=== PATIENT | female | born 1970 | race Two or more races ===

== ENCOUNTER 2021-10-19 09:21 | Day surgery (SDC) | payer OTHER ==
[2021-10-14 13:45] VITALS: BP 135/69
[~2021-10-19] VITALS: Ht 160 cm; Wt 77.2 kg
[~2021-10-19 09:21] MED LIST: ALPR0.5T PO; BUPIVACAINE-EPI 0.5% 30 ML VIAL KIT. ONE; BUTA1CAP57 PO; CRESTOR40 MG PO; HYDROmorphone 2 MG/ML INJ. IVP PRN; INSULIN LISPRO 100 UNIT/ML 3ML VIAL for OP,RR ONLY. SQ PRN; IOHEXOL 300 MG/ML 50 ML VIAL. ONE; IV RINGERS,LACTATED 1000ML 1,000 ML IV SCH; LISI1TAB37 PO; METF10007 PO; OMEP40CA7 PO; PROCHLORPERAZINE 10 MG/2 ML VIAL. IVP PRN; TOPI50TA8 PO; ceFAZolin SODIUM IV Push 1 GM VIAL. IVP PRN; fentaNYL PF VIAL 100 MCG/2 ML VIAL IVP PRN
[2021-10-19 09:48] VITALS: BP 171/85
[2021-10-19] MEDS ORDERED: DEXAMETHASONE SOD PHOS 4 MG/ML VIAL ONE (09:55)
[2021-10-19] MEDS ORDERED: SEVOFLURANE 61 TO 120 MINUTES. IH ONE (09:55)
[2021-10-19] MEDS ORDERED: ONDANSETRON PF 4 MG/2 ML VIAL. ONE (09:55)
[2021-10-19] MEDS ORDERED: PROPOFOL 10 MG/ML (20ML) VIAL. IV ONE (09:55)
[2021-10-19] MEDS ORDERED: LIDOCAINE 2% PF 5 ML VIAL. ONE (09:55)
[2021-10-19] MEDS ORDERED: MIDAZOLAM HCL/PF 2 MG/2 ML VIAL. ONE (09:56)
[2021-10-19] MEDS ORDERED: ROCURONIUM 50 MG/5 ML VIAL. ONE ×2 (09:56→12:01)
[2021-10-19] MEDS ORDERED: fentaNYL PF VIAL 100 MCG/2 ML VIAL ONE ×2 (09:56→12:46)
[2021-10-19 10:20] LABS: CALCIUM 8.8 mg/dL (8.5-10.1); CREATININE 0.6 mg/dL (0.6-1.0); GFR 106.3; POTASSIUM 3.6 mmol/L (3.5-5.1)
[2021-10-19 10:26] LABS: ALBUMIN 3.5 g/dL (3.4-5.0); ALBUMIN/GLOBULIN RATIO 0.7 (1.0-1.7); TOTAL BILIRUBIN 0.2 mg/dL (0.2-1.0); TOTAL PROTEIN 8.8 g/dL (6.4-8.2)
--- NOTE | 2021-10-19 10:44 | PDOC ---
SURGICAL PROGRESS NOTE DATE: 10/19/21 TIME: 10:43 No change in dictated H&P. Vital Signs Vital Signs Date Time Temp Pulse Resp B/P (MAP) Pulse Ox O2 Delivery O2 Flow Rate FiO2 10/19/21 09:48 97.0 76 18 98 97.0 10/19/21 09:37 171/85 Room Air Labs Laboratory Tests Test 10/19/21 09:42 10/19/21 09:50 Bedside Urine HCG, Qualitative Hcg negative (Negative) Sodium Level 137 mmol/L (136-145) Potassium Level 3.6 mmol/L (3.5-5.1) Chloride Level 97 mmol/L (98-107) Carbon Dioxide Level 28 mmol/L (21-32) Anion Gap 12 (6-14) Blood Urea Nitrogen 12 mg/dL (7-20) Creatinine 0.6 mg/dL (0.6-1.0) Estimated GFR (Cockcroft-Gault) 106.3 BUN/Creatinine Ratio 20 (6-20) Glucose Level 116 mg/dL (70-99) Calcium Level 8.8 mg/dL (8.5-10.1) Total Bilirubin 0.2 mg/dL (0.2-1.0) Aspartate Amino Transf (AST/SGOT) 28 U/L (15-37) Alanine Aminotransferase (ALT/SGPT) 42 U/L (14-59) Alkaline Phosphatase 225 U/L (46-116) Total Protein 8.8 g/dL (6.4-8.2) Albumin 3.5 g/dL (3.4-5.0) Albumin/Globulin Ratio 0.7 (1.0-1.7) Laboratory Tests Test 10/19/21 09:42 10/19/21 09:50 Bedside Urine HCG, Qualitative Hcg negative (Negative) Sodium Level 137 mmol/L (136-145) Potassium Level 3.6 mmol/L (3.5-5.1) Chloride Level 97 mmol/L (98-107) Carbon Dioxide Level 28 mmol/L (21-32) Anion Gap 12 (6-14) Blood Urea Nitrogen 12 mg/dL (7-20) Creatinine 0.6 mg/dL (0.6-1.0) Estimated GFR (Cockcroft-Gault) 106.3 BUN/Creatinine Ratio 20 (6-20) Glucose Level 116 mg/dL (70-99) Calcium Level 8.8 mg/dL (8.5-10.1) Total Bilirubin 0.2 mg/dL (0.2-1.0) Aspartate Amino Transf (AST/SGOT) 28 U/L (15-37) Alanine Aminotransferase (ALT/SGPT) 42 U/L (14-59) Alkaline Phosphatase 225 U/L (46-116) Total Protein 8.8 g/dL (6.4-8.2) Albumin 3.5 g/dL (3.4-5.0) Albumin/Globulin Ratio 0.7 (1.0-1.7) Justicifation of Admission Dx: Justifications for Admission: Justification of Admission Dx: Yes TRUPTI RAMOS MD Oct 19, 2021 10:44
--- NOTE | 2021-10-19 10:46 | PDOC ---
SURGICAL PROGRESS NOTE DATE: 10/19/21 TIME: 10:44 Op Note: Surgeon.........................................Hank Pre op diag.....................................chronic cholecystitis and cholelithiasis Post op diag....................................same Anesthesia......................................general Procedure.......................................lap rajesh with grams Blood loss.......................................15ccd Fluids.............................................see anesthesia sheet Drains.............................................none Condition.......................................satisfactory Vital Signs Vital Signs Date Time Temp Pulse Resp B/P (MAP) Pulse Ox O2 Delivery O2 Flow Rate FiO2 10/19/21 09:48 97.0 76 18 98 97.0 10/19/21 09:37 171/85 Room Air Labs Laboratory Tests Test 10/19/21 09:42 10/19/21 09:50 Bedside Urine HCG, Qualitative Hcg negative (Negative) Sodium Level 137 mmol/L (136-145) Potassium Level 3.6 mmol/L (3.5-5.1) Chloride Level 97 mmol/L (98-107) Carbon Dioxide Level 28 mmol/L (21-32) Anion Gap 12 (6-14) Blood Urea Nitrogen 12 mg/dL (7-20) Creatinine 0.6 mg/dL (0.6-1.0) Estimated GFR (Cockcroft-Gault) 106.3 BUN/Creatinine Ratio 20 (6-20) Glucose Level 116 mg/dL (70-99) Calcium Level 8.8 mg/dL (8.5-10.1) Total Bilirubin 0.2 mg/dL (0.2-1.0) Aspartate Amino Transf (AST/SGOT) 28 U/L (15-37) Alanine Aminotransferase (ALT/SGPT) 42 U/L (14-59) Alkaline Phosphatase 225 U/L (46-116) Total Protein 8.8 g/dL (6.4-8.2) Albumin 3.5 g/dL (3.4-5.0) Albumin/Globulin Ratio 0.7 (1.0-1.7) Laboratory Tests Test 10/19/21 09:42 10/19/21 09:50 Bedside Urine HCG, Qualitative Hcg negative (Negative) Sodium Level 137 mmol/L (136-145) Potassium Level 3.6 mmol/L (3.5-5.1) Chloride Level 97 mmol/L (98-107) Carbon Dioxide Level 28 mmol/L (21-32) Anion Gap 12 (6-14) Blood Urea Nitrogen 12 mg/dL (7-20) Creatinine 0.6 mg/dL (0.6-1.0) Estimated GFR (Cockcroft-Gault) 106.3 BUN/Creatinine Ratio 20 (6-20) Glucose Level 116 mg/dL (70-99) Calcium Level 8.8 mg/dL (8.5-10.1) Total Bilirubin 0.2 mg/dL (0.2-1.0) Aspartate Amino Transf (AST/SGOT) 28 U/L (15-37) Alanine Aminotransferase (ALT/SGPT) 42 U/L (14-59) Alkaline Phosphatase 225 U/L (46-116) Total Protein 8.8 g/dL (6.4-8.2) Albumin 3.5 g/dL (3.4-5.0) Albumin/Globulin Ratio 0.7 (1.0-1.7) Justicifation of Admission Dx: Justifications for Admission: Justification of Admission Dx: Yes TRUPTI RAMOS MD Oct 19, 2021 10:46
--- NOTE | 2021-10-19 11:09 | PREOP HP ---
DATE OF SERVICE: 10/19/2021 HISTORY OF PRESENT ILLNESS: The patient is referred by Dr. Parra for cholelithiasis. The history is that she has had for a number of years postprandial fatty food intolerance with gas, bloating, epigastric and right upper quadrant pain. She has never had abdominal surgery and eventually had a sonogram of the gallbladder done this month which showed gallstones without any evidence of obstruction or cholecystitis. This she states has been going on for a long time. She also understands that the gallbladder would not affect gastritis, reflux or any ulcer that she may also have. PAST MEDICAL HISTORY: Shows normal childhood diseases. MEDICATIONS: She takes medication for diabetes and hypertension and also for elevated cholesterol, no other medications. ALLERGIES: She has no allergies. PAST SURGICAL HISTORY: Does not have abdominal surgery. Did have a cyst removed from the back years ago. Not mentioned before, but she does have this fatty food intolerance and also it radiates to the back, mostly on the right side. FAMILY HISTORY: Noncontributory. SOCIAL HISTORY: Shows she drinks only socially, not enough to get inebriated. Does not smoke and does not use illicit drugs. REVIEW OF SYSTEMS: Other than the epigastric pain and right upper quadrant pain with gas and bloating, she does not have GI symptoms, and has no other symptoms or problems at this point. PHYSICAL EXAMINATION: GENERAL: Shows an alert female in no acute distress. HEAD, EYES, EARS, NOSE AND THROAT: Grossly normal. CHEST: Clear bilaterally to auscultation. BREASTS: Not examined. HEART: Had a rate of 70 beats per minute, was regular and she did have about 1-2/6 systolic murmur at the aortic area, not heard at the mitral area or other areas. No history of heart disease to her knowledge. ABDOMEN: Soft. There was no organomegaly, no scars of previous surgery. There was no rebound, guarding or other abnormalities. As stated before there were no masses. She has not had any hysterectomy or any other surgery on the abdomen. EXTREMITIES: Grossly normal. RECTAL: Not done. PELVIC: Not done. IMPRESSION: 1. Hypertension. 2. Diabetes. 3. Hypercholesterolemia. 4. Cholelithiasis. PLAN: We will plan to remove the gallbladder at a time that is satisfactory with her. She understands the ramifications of the risks and wishes it to be done. She understands we will attempt to do it laparoscopically, but there is always a chance that she may have to have open cholecystectomy. DECLAN/CHEY/SILVA DR: DECLAN/cooper TID: [id number]
[2021-10-19] MEDS ORDERED: PHENYLEPHRINE in 0.9% NACL PF 1 MG/10 ML SYRINGE. IV ONE ×2 (11:12→11:51)
--- NOTE | 2021-10-19 12:09 | RAD ---
EXAM: Intraoperative cholangiogram. HISTORY: Cholecystectomy. Pain. COMPARISON: None. FINDINGS: 3 fluoroscopic images were obtained during an intraoperative cholangiogram. The total fluor oscopy time was 0.11 minutes. The images demonstrate contrast opacification of the biliary tree and p roximal duodenum. No retained stone is seen. IMPRESSION: Intraoperative cholangiogram without evidence of a retained stone. Electronically signed by: Felecia Lai MD (10/19/2021 12:07 PM) [id number]
--- NOTE | 2021-10-19 13:29 | DISCH ---
DISCHARGE INSTRUCTIONS Condition on Discharge Condition on Discharge: Stable Activity After Discharge Activity Instructions for Disc: Avoid exertion Other activity instructions: nothing strenuos acvity Driving Instructions after Dis: Do not drive Diet after Discharge Diet after Discharge: Clear Liquid Wound Incision Care Other wound/incision instructi: may shower..leave dressing on Follow-Up Follow up with: call and make appt to see me in 2 weeks Treatment/Equipment after DC Adaptive Equipment Issued: None TRUPTI RAMOS MD Oct 19, 2021 13:29
[2021-10-19] MEDS ORDERED: MORPHINE SULFATE 2 MG/ML INJ. ONE (14:05)
[2021-10-19] MEDS: MORPHINE SULFATE 2 MG/ML INJ. IVP PRN ×2 (14:09→14:22)
[2021-10-19] MEDS ORDERED: HYDR-2765 PO (14:29)
[2021-10-19] MEDS ORDERED: HYDROcodone/APAP 7.5/325MG 1 TAB TABLET PO ONE (14:45)
[2021-10-19] MEDS ORDERED: INSULIN LISPRO 100 UNIT/ML 3ML VIAL for OP,RR ONLY. SQ ONE (15:05)
[2021-10-19 15:41] VITALS: BP 128/72
--- NOTE | 2021-10-20 02:35 | OP ---
DATE OF SURGERY: 10/19/2021 SURGEON: Maikol Mckinney MD PREOPERATIVE DIAGNOSIS: Chronic cholecystitis and cholelithiasis. ANESTHESIA: General. PROCEDURE: Laparoscopic cholecystectomy with enterolysis and the intraoperative cholangiogram. TECHNIQUE: Under general anesthesia, the patient was properly prepped and draped in routine fashion. The abdomen was entered through the umbilical area. A small longitudinal incision was made about half inch in length below the umbilicus pulling up on towel clips on either side. We then instilled the Veress needle into the peritoneal cavity. We then put about 2-3 mL of saline in the needle and it flowed in with gravity. We then insufflated the abdomen with CO2 up to 50, a 12-mm trocar at this area and then the camera which was a 10 mm. We inspected the abdomen and there were no adhesions to the anterior abdominal wall. She has not had surgery before. No evidence of infection or inflammation. A trocar 5 mm was placed just to the right of the falciform ligament and one in the right upper quadrant about 2-3 inches below the costal margin and one laterally in the right abdomen. The patient was placed in reverse Trendelenburg left side down. Graspers were placed in the right abdominal port and we then used a dissector with the right angle to pull the bowel away from the gallbladder. There were many adhesions to the gallbladder and these were simply pulled away and the bowel was pulled away slowly. We used Harmonic scalpel also to divide some of the adhesions to the gallbladder not injuring any intra-abdominal contents. There were fairly dense adhesions around the gallbladder near the cystic duct. These were slowly pulled away. We identified the cystic artery, which was prominent and in the normal location being above the cystic duct, which was seen going directly into the gallbladder. We saw this clearly. We had placed the graspers, one on the fundus and one on the ampulla, pushed the fundus up to the right shoulder and then manipulated the ampulla so that we could facilitate removing the adhesions around the cystic duct and artery. We then used a right angle to go around this. I then placed a clip high on the gallbladder at the cystic duct junction, placed 2 of them there. We then made a small incision in the cystic duct close to the clips and close to the gallbladder and saw this going into the gallbladder. We then passed through a needle the trocar and ____ at least radiographic dye. We got all the air out of this, placed this catheter into the cystic duct, clipped it in place with a clip. We then aspirated bile and injected and there was no leak. We then got cholangiograms and the cholangiogram showed it to be normal with normal visualization of a normal common duct. No filling defects and you could see the dye going through the cystic duct into the common duct going up into the liver and down into the common duct and into the duodenum clearly. There was no evidence of filling defects. We talked to the radiologist and it was read as normal. We then removed the clip holding the catheter in place, removed the catheter totally and then clipped the cystic duct close to the opening 3 times and then divided it at the area that had previously been incised in the cystic duct. The cystic artery was identified, clipped high on the gallbladder and then about quarter of an inch away from the gallbladder 3 times on the patient's side, then divided. We then shelled the gallbladder out of the gallbladder fossa using Harmonic scalpel and slowly got this out. Before we completely remove it from the liver bed, we inspected the liver bed. There were no bile leaks, no blood and no bleeding. The gallbladder was amputated from the liver tip. A 5 mm camera was placed in the epigastric port and the EndoCatch basket was placed through the umbilical port. We then opened this, placed the gallbladder in it and then closed it. The graspers were released. We then made a small incision longitudinally in the fascia just below the umbilicus where the port had been. We did this because she had one stone, which was about 3 cm in size and more ____ come up, we had to do this and then we delivered the gallbladder and tacked with the stone in it. We then inspected the area, there was no evidence of any injury to intra-abdominal contents and then placed #1 Prolene sutures, 3 in number in the fascia and then tied these. We inspected the area ____ pulling the incisions up and there was obviously nothing adherent to the anterior abdominal wall. We then injected 0.5% Marcaine with epinephrine into the fascia around this area. We then inspected the areas and all was well. We aspirated some of the blood from lateral to the liver and then aspirated all the CO2 out of the abdomen and removed the catheter, camera and trocars. The wounds were irrigated with saline and the subcutaneous was approximated using 4-0 Vicryl. The skin was closed in all locations using subcuticular 5-0 Vicryl. Sterile Tegaderm dressings were applied and the procedure was terminated. The blood loss was about 15-16 mL. Fluids given can be obtained from the anesthesia sheet. No drains were used and the condition of the patient satisfactory as she was returned to the recovery room. JAYCE/JAYASHREE DR: Stephen TID: [id number]
--- NOTE | 2021-10-21 16:10 | PATHOLOGY ---
[facility] Accession Number: [id number] . 01 Material submitted: . gallbladder - GALLBLADDER AND CONTENTS . 01 Clinical history: . CHOLELILTHESIA CHOLELITHIASIS LAP PARKER, POSS CHOLIANGIOGRAM POSS EXPLORATORY LAP . 02 Diagnosis: Gallbladder, laparoscopic cholecystectomy: - Cholelithiasis. - Cholesterolosis. - Chronic cholecystitis. . ([facility]:mm; 10/21/2021) [facility] 10/21/2021 1022 Local . 02 Comment: There is no evidence of malignancy. . ([facility]:mm; 10/21/2021) . 02 Electronically signed: . Floyd Reyes MD, Pathologist NPI- [id number] . 01 Gross description: . Fixative: Formalin Labeled: Gallbladder and contents Specimen received: Intact gallbladder Dimensions: 10.8 x 3.9 x 3.7 cm Serosa: Leigh-green to leigh-mccauley with a mild amount of attached adipose tissue Lymph node: Not identified Mucosa: Velvety, bile-stained with mild yellow stippling Average wall thickness: 0.3 cm Calculi: A single calculus present measuring 2.6 cm displaying a yellow-green and granular appearance Abnormalities: None identified . A1- Emt Driver body, fundus, and the cystic duct margin. ([facility]; 10/20/2021) NRI/NRI 10/20/2021 1451 Local . 02 Pathologist provided ICD-10: K80.10, K82.4 . 02 CPT . 085336 Specimen Comment: A courtesy copy of this report has been sent to [phone], [phone] Specimen Comment: [id number] Specimen Comment: Report sent to / DR HOLBROOK Performed at: 01 [facility] [address], [place], [place] [id number] MD Nhan Medina MD Phone: [phone] Performed at: 02 [facility] [address] [place], [place] [id number] MD Floyd Reyes MD Phone: [phone]
== END 2021-10-19 16:00 | disposition home or self-care (01) ==
LOC: SURG 09:21 → EDUNIT# 10:30 → SURG 16:00
PROVIDERS: ATTEND Specialist
DX: K80.10 Calculus of gallbladder with chronic cholecystitis without obstruction (principal); I10 Essential (primary) hypertension; E11.9 Type 2 diabetes mellitus without complications; E78.00 Pure hypercholesterolemia, unspecified; J45.909 Unspecified asthma, uncomplicated; K21.9 Gastro-esophageal reflux disease without esophagitis; Z79.899 Other long term (current) drug therapy; Z98.890 Other specified postprocedural states
CPT/HCPCS: 36415; 47563; 74300; 80053; 81025; 82962; A4213; A4314; A4930; A6257; A6258; C1887; J0690; J1100; J1815; J2250; J2270; J2370; J2405; J2704; J3010; Q9967; A4657